=== PATIENT | female | born 1950 | race Caucasian/White ===

== ENCOUNTER 2016-12-08 07:10 | Emergency (ER) | payer MEDICARE, OTHER ==
[2016-12-08] MEDS ORDERED: METHYLPREDNISOLONE PF 125MG/VIAL IM ONE (07:36)
--- NOTE | 2016-12-08 07:44 | Emergency Department Record ---
History of Present Illness - General Chief Complaint: Back Pain/Injury Stated Complaint: siatica, left leg pain and spasms in both Time Seen by Provider: 12/08/16 07:36 Source: Patient Mode of Arrival: Ambulatory Limitations: No limitations - History of Present Illness Initial Comments: 66 yo female presents to ED with a CC of worsening back and left hip pain that has been ongoing for some time. Patient reports seeing Dr. Baumann for her symptoms last week, underwent x-rays of the hips which were negative at that time. Patient is scheduled to see an orthopedics surgeon soon as well for her symptoms. Patient is requesting a "steroid shot for her sciatica pain". MD Complaint: Back pain Onset/Timin -: Week(s) Similar Symptoms Previously: Yes Place: Home Radiation: Left leg Severity: Moderate Severity scale (1-10): 10 Quality: Aching Consistency: Constant Improves With: None Worsens With: None Context: Unknown Associated Symptoms: Denies other symptoms Treatments Prior to Arrival: Prescription analgesics - Related Data Home Medications Medication Instructions Recorded Confirmed Last Taken Clonazepam [Klonopin] 1 mg PO QHS 06/28/14 12/08/16 12/08/16 Sumatriptan Succinate [Imitrex] 100 mg PO ASDIR PRN 06/28/14 12/08/16 12/08/16 Hydrocodone/Acetaminophen 1 tab PO Q6H 10/11/15 12/08/16 12/08/16 [Hydrocodon-Acetaminoph 7.5-325] Paroxetine HCl 40 mg PO DAILY #30 07/28/16 12/08/16 12/08/16 Ondansetron [Zofran Odt] 4 mg PO QID PRN 09/04/16 12/08/16 12/08/16 Ropinirole HCl [Requip] 0.5 mg PO QHS 09/04/16 12/08/16 12/08/16 Bupropion HCl [Wellbutrin Sr] 150 mg PO DAILY 12/08/16 12/08/16 12/08/16 Allergies Allergy/AdvReac Type Severity Reaction Status Date / Time nadolol [From Corgard] Allergy Severe SWELLING Verified 12/08/16 07:16 OF THE TONGUE prochlorperazine edisylate Allergy Severe SWELLING Verified 12/08/16 07:16 [From Compazine] OF THE TONGUE prochlorperazine maleate Allergy Severe SWELLING Verified 12/08/16 07:16 [From Compazine] OF THE TONGUE trimethobenzamide HCl Allergy Severe SWELLING Verified 12/08/16 07:16 [From Tigan] OF THE TONGUE hydromorphone HCl Allergy Intermediate VOMITING Verified 12/08/16 07:16 [From Dilaudid] metoclopramide HCl Allergy Intermediate RASH Verified 12/08/16 07:16 [From Reglan] topiramate [From Topamax] AdvReac Mild Kidney Verified 12/08/16 07:16 Stones Travel Screening - Travel/Exposure Within Last 30 Days Have you traveled within the last 30 days?: No - Travel/Exposure Within Last Year Have you traveled outside the [place] in the last year?: No - Additonal Travel Details Have you been exposed to anyone with a communicable illness?: No - Travel Symptoms Symptom Screening: None Review of Systems Constitutional: Denies: Chills, Fever, Malaise, Night sweats Eyes: Denies: Eye discharge, Eye pain ENT: Denies: Congestion, Ear pain, Epistaxis Respiratory: Denies: Cough, Dyspnea Cardiovascular: Denies: Chest pain, Dyspnea on exertion Endocrine: Denies: Fatigue, Heat or cold intolerance Gastrointestinal: Denies: Abdominal pain, Nausea, Vomiting Genitourinary: Denies: Dysuria, Frequency, Hematuria Musculoskeletal: Reports: Arthralgia, Back pain. Denies: Gout, Joint swelling Skin: Denies: Bruising, Change in color Neurological: Denies: Abnormal gait, Confusion, Headache, Seizure Psychiatric: Denies: Anxiety Hematological/Lymphatic: Reports: Anemia. Denies: Blood Clots Past Medical History - SOCIAL HISTORY Smoking Status: Never smoker Alcohol Use: None Drug Use: None - RESPIRATORY Hx Respiratory Disorders: No - CARDIOVASCULAR Hx Cardio Disorders: No Comment:: left foot fascitis hard to stand and/or walk for a period time - NEURO Hx Neuro Disorders: Yes Hx of Migraines: Yes (nausea and vomitting w/ these) Hx Neuropathy: Yes (Left foot) Comment:: bilateral vitreous detachment - GI Hx GI Disorders: Yes Hx Reflux: Yes Hx Hiatal Hernia: Yes (MODERATE SIZE) - Hx Genitourinary Disorders: Yes Hx Kidney Stones: Yes (with renal stents) - ENDOCRINE Hx Endocrine Disorders: No Hx Diabetes: No Hx Thyroid Disease: No - MUSCULOSKELETAL Hx Musculoskeletal Disorders: Yes Hx Arthritis: Yes Hx Osteoporosis: Yes Comment:: right rotator cuff tear-currently:degen disc dz lower thoracic, - PSYCH Hx Psych Problems: Yes Hx Depression: Yes - HEMATOLOGY/ONCOLOGY Hx Hematology/Oncology Disorders: Yes Hx Bruising: Yes Family Medical History Any Significant Family History?: Yes Hx Heart Disease: Mother, Grandparents *Heart Comment: A.fib, CHF Hx Stroke: Grandparents Physical Exam - General General Appearance: Alert, Oriented x3, Cooperative, No acute distress, Other ( Can sit up from supine easily and without pain symptoms) Limitations: No limitations - Head Head exam: Atraumatic, Normocephalic, Normal inspection Head exam detail: negative: Abrasion, Contusion, Bettencourt's sign, General tenderness, Hematoma, Laceration - Eye Eye exam: Normal appearance. negative: Conjunctival injection, Periorbital swelling, Periorbital tenderness, Scleral icterus - ENT Ear exam: negative: Auricular hematoma, Auricular trauma Nasal Exam: negative: Active bleeding, Discharge, Dried blood, Foreign body Mouth exam: negative: Drooling, Laceration, Muffled voice, Tongue elevation - Neck Neck exam: Normal inspection. negative: Meningismus, Tenderness - Respiratory Respiratory exam: Normal lung sounds bilaterally. negative: Rales, Respiratory distress, Rhonchi, Stridor - Cardiovascular Cardiovascular Exam: Regular rate, Normal rhythm, Normal heart sounds - GI/Abdominal GI/Abdominal exam: Soft. negative: Rebound, Rigid, Tenderness - Rectal Rectal exam: Deferred - exam: Deferred - Extremities Extremities exam: Tenderness, Other (Mild TTP to the lateral left hip on examination, no shortening or pain with rotation). negative: Calf tenderness, Pedal edema - Back Back exam: Denies: CVA tenderness (R), CVA tenderness (L) - Neurological Neurological exam: Alert, Normal gait, Oriented X3 - Psychiatric Psychiatric exam: Flat affect, Normal mood - Skin Skin exam: Normal color. negative: Abrasion Type of lesion: negative: abrasion Course Vital Signs 12/08/16 07:20 Temperature 98.3 F Pulse Rate 94 H Respiratory 18 Rate Blood Pressure 122/84 Pulse Ox 97 - Reevaluation(s) Reevaluation #1: 12/08/16 07:41 Previous records reviewed from patient's records: 12/01/16: Bilateral hips/pelvis: Mild degenerative changes, nothing acute. Chronic lesion 15x15 mm to the left iliac crest seen on prior imaging. 08/08/17: MRI Lumbar spine: Mild multi-degenerative changes, borderline canal stenosis. Neural foraminal narrowing at L2-L3, L3-L4. Patient is requesting a "steroid shot" for her pain and inflammation, solumedrol 125 mg ordered for analgesia. Patient has no evidence for acute spinal cord compression syndrome, and otherwise appears stable for discharge at this time. Disposition Disposition: Discharge Clinical Impression: Arthritis of lumbar spine Disposition: Home, Self-Care Condition: (2) Stable Instructions: Osteoarthritis (ED) Additional Instructions: Return to ED if your symptoms worsen or if you have any concerns. Follow-up with Dr. Baumann in 5-7 days as directed. Forms: Patient Portal Access Time of Disposition: 07:45
== END 2016-12-08 08:13 | disposition home or self-care (01) ==
LOC: ER 07:10
DX: M47.896 Other spondylosis, lumbar region (principal)
CPT/HCPCS: 96372; 99283; J2930

== ENCOUNTER 2017-09-28 23:24 | Emergency (ER) | payer MEDICARE, OTHER ==
[2017-09-28] MEDS ORDERED: METHYLPREDNISOLONE PF 125MG/VIAL IVP ONE (23:46)
--- NOTE | 2017-09-28 23:49 | Emergency Department Record ---
History of Present Illness - General Chief complaint: ENT Stated complaint: EAR PAIN Time Seen by Provider: 09/28/17 23:45 Source: Patient Mode of Arrival: Ambulatory Limitations: No limitations - History of Present Illness Initial comments: 67 yo female presents to ED for evaluation of a possible foreign body in the left ear as well as back pain resulting from shoveling snow today. Patient reports that part of her hearing aid "snapped off" inside the ear canal. Patient reports pain to the area, denies bleeding or discharge symptoms. Patient also denies groin numbness, urinary retention, or lower extremity weakness symptoms. MD complaint: Ear pain Onset/Timin -: Hour(s) Location: L ear Severity scale (1-10): 7 Consistency: Constant Improves with: None Worsens with: None Context- Ear: Other - Related Data Home Medications Medication Instructions Recorded Confirmed Last Taken Ferrous Sulfate, Dried [Iron] 65 mg PO DAILY 09/28/17 09/28/17 Unknown Ropinirole HCl [Requip] 5 mg PO QHS 09/28/17 09/28/17 Unknown Allergies Allergy/AdvReac Type Severity Reaction Status Date / Time nadolol [From Corgard] Allergy Severe SWELLING Verified 09/28/17 23:31 OF THE TONGUE prochlorperazine edisylate Allergy Severe SWELLING Verified 09/28/17 23:31 [From Compazine] OF THE TONGUE prochlorperazine maleate Allergy Severe SWELLING Verified 09/28/17 23:31 [From Compazine] OF THE TONGUE trimethobenzamide HCl Allergy Severe SWELLING Verified 09/28/17 23:31 [From Tigan] OF THE TONGUE hydromorphone HCl Allergy Intermediate VOMITING Verified 09/28/17 23:31 [From Dilaudid] metoclopramide HCl Allergy Intermediate RASH Verified 09/28/17 23:31 [From Reglan] topiramate [From Topamax] AdvReac Mild Kidney Verified 09/28/17 23:31 Stones Travel Screening - Travel/Exposure Within Last 30 Days Have you traveled within the last 30 days?: No - Travel Symptoms Symptom Screening: None Review of Systems Constitutional: Denies: Chills, Fever, Malaise, Night sweats Eyes: Denies: Eye discharge, Eye pain ENT: Reports: Ear pain. Denies: Congestion, Epistaxis Respiratory: Denies: Cough, Dyspnea Cardiovascular: Denies: Chest pain, Dyspnea on exertion Endocrine: Denies: Fatigue, Heat or cold intolerance Gastrointestinal: Denies: Abdominal pain, Nausea, Vomiting Genitourinary: Denies: Incontinence, Retention Musculoskeletal: Reports: Back pain. Denies: Arthralgia Skin: Denies: Bruising, Change in color Neurological: Denies: Abnormal gait, Confusion, Headache, Seizure, Tingling Psychiatric: Denies: Anxiety Hematological/Lymphatic: Denies: Anemia, Blood Clots Past Medical History - SOCIAL HISTORY Smoking Status: Never smoker - RESPIRATORY Hx Respiratory Disorders: No - CARDIOVASCULAR Hx Cardio Disorders: No Comment:: left foot fascitis hard to stand and/or walk for a period time - NEURO Hx Neuro Disorders: Yes Hx Headaches: Yes Hx of Migraines: Yes (nausea and vomitting w/ these) Hx Neuropathy: Yes (Left foot) Comment:: bilateral vitreous detachment - GI Hx GI Disorders: Yes Hx Reflux: Yes Hx Hiatal Hernia: Yes (MODERATE SIZE) - Hx Genitourinary Disorders: Yes Hx Kidney Stones: Yes (with renal stents) - ENDOCRINE Hx Endocrine Disorders: No Hx Diabetes: No Hx Thyroid Disease: No - MUSCULOSKELETAL Hx Musculoskeletal Disorders: Yes Hx Arthritis: Yes Hx Osteoporosis: Yes Comment:: right rotator cuff tear-currently:degen disc dz lower thoracic, - PSYCH Hx Psych Problems: Yes Hx Depression: Yes - HEMATOLOGY/ONCOLOGY Hx Hematology/Oncology Disorders: Yes Hx Anemia: Yes Hx Bruising: Yes Family Medical History Any Significant Family History?: Yes Hx Heart Disease: Mother, Grandparents *Heart Comment: A.fib, CHF Hx Stroke: Grandparents Physical Exam - General General Appearance: Alert, Oriented x3, Cooperative, Mild distress Limitations: No limitations - Head Head exam: Atraumatic, Normocephalic, Normal inspection Head exam detail: negative: Abrasion, Contusion, Bettencourt's sign, General tenderness, Hematoma, Laceration - Eye Eye exam: Normal appearance. negative: Conjunctival injection, Periorbital swelling, Periorbital tenderness, Scleral icterus - ENT Ear exam: Other (Small plastic piece is in the left ear canal). negative: Auricular hematoma, Auricular trauma Nasal Exam: negative: Active bleeding, Discharge, Dried blood, Foreign body Mouth exam: negative: Drooling, Laceration, Muffled voice, Tongue elevation - Neck Neck exam: Normal inspection. negative: Meningismus, Tenderness - Respiratory Respiratory exam: Normal lung sounds bilaterally. negative: Rales, Respiratory distress, Rhonchi, Stridor - Cardiovascular Cardiovascular Exam: Regular rate, Normal rhythm, Normal heart sounds - GI/Abdominal GI/Abdominal exam: Soft. negative: Rebound, Rigid, Tenderness - Rectal Rectal exam: Deferred - exam: Deferred - Extremities Extremities exam: Normal inspection. negative: Pedal edema, Tenderness - Back Back exam: Denies: CVA tenderness (R), CVA tenderness (L) - Neurological Neurological exam: Alert, Normal gait, Oriented X3 - Psychiatric Psychiatric exam: Normal affect, Normal mood - Skin Skin exam: Normal color. negative: Abrasion Type of lesion: negative: abrasion Course Vital Signs 09/28/17 23:29 Temperature 98.4 F Pulse Rate [ 90 Pulse Ox Probe] Respiratory 20 Rate Blood Pressure 154/91 [Left Arm] Pulse Ox 97 Procedures - Foreign Body Removal Ear Location: Ear canal (L) Foreign Body Suspected: Plastic bead/other plastic Foreign Body Removed: Yes Foreign Body Removal Technique: Forceps Tympanic Membrane Intact: Yes Patient Tolerated Procedure: Good Complications: None Disposition Disposition: Discharge Clinical Impression: Lumbar strain Qualifiers: Encounter type: initial encounter Qualified Code(s): S39.012A - Strain of muscle, fascia and tendon of lower back, initial encounter Ear foreign body Qualifiers: Encounter type: initial encounter Laterality: left Qualified Code(s): T16.2XXA - Foreign body in left ear, initial encounter Disposition: Home, Self-Care Condition: (2) Stable Instructions: Ear Foreign Body (ED) Additional Instructions: Return to ED if your symptoms worsen or if you have any concerns. Follow-up with your family doctor in 3-5 days as directed. Forms: Patient Portal Access Time of Disposition: 23:49 Quality - Quality Measures Quality Measures: N/A - Blood Pressure Screening Does Patient Have Any of the Following: No Blood Pressure Classification: Hypertensive Reading Systolic Measurement: 154 Diastolic Measurement: 91 Screening for High Blood Pressure: < First Hypertensive BP, F/U Documented > [ [id number]] First Hypertensive Follow-up Interventions: Referral to alternative/primary care provider.
[2017-09-28] MEDS ORDERED: METHYLPREDNISOLONE PF 125MG/VIAL IM ONE (23:50)
== END 2017-09-28 23:57 | disposition home or self-care (01) ==
LOC: ER 23:24
DX: S39.012A Strain of muscle, fascia and tendon of lower back, initial encounter (principal); T16.2XXA Foreign body in left ear, initial encounter; X50.9XXA Other and unspecified overexertion or strenuous movements or postures, initial encounter; Y93.H1 Activity, digging, shoveling and raking
CPT/HCPCS: 96372; 99283; 99284; J2930

== ENCOUNTER 2018-08-17 06:28 | Day surgery (SDC) | payer MEDICARE, OTHER ==
--- NOTE | 2018-08-16 11:30 | History and Physical - [place] ---
CHIEF COMPLAINT/HISTORY OF CHIEF COMPLAINT: This patient presents with a history of an intractable lumbar radiculopathy. Due to the failure of all therapy, a spinal cord stimulator trial was conducted on 07/23/18 with 75-85% pain control. Due to the failure of therapy and the success of the stimulator trial, the patient presents today for implantation of a permanent system. PAST MEDICAL HISTORY: Bladder dysfunction, gastritis, and chronic pulmonary disease. PAST SURGICAL HISTORY: Hysterectomy, tibial and fibular fracture plate and screws done through surgery. MEDICATIONS ON ADMISSION: List to be provided. ALLERGIES: CORGARD, IV TYLENOL, AND REGLAN. FAMILY/PSYCHOSOCIAL HISTORY: Social history - Noncontributory. Family history - Thyroid disease and hypertension. SYSTEMS REVIEW: The patient is appropriate in no acute distress. The remainder of the systems review is positive for glasses, hearing aids, renal lithiasis, degenerative arthritis, depression, and difficulty sleeping. PHYSICAL EXAMINATION: Height and weight are not known. No vital signs. HEENT: Within normal limits. LUNGS: Clear. HEART: Regular rate and rhythm. ABDOMEN: Nontender. MUSCULOSKELETAL: Examination of the musculoskeletal system shows diffuse tenderness throughout the lumbar spine. There is pain extending into both lower extremities. There is no motor or sensory abnormalities, only pain which seems to extend across an L4 and an L5 pattern. Ambulation - No assistive device utilized. NEUROLOGIC: Cranial nerves are intact. IMPRESSION: LUMBAR RADICULOPATHY, ICD-10 CODE M54.16 AND M54.17. PLAN: The patient is here for an implanted spinal cord stimulator after a successful trial and failure of all other therapies. The procedure will be considered outpatient, although an overnight stay will be evaluated. Potential risks, side effects and complications have all been carefully reviewed. JOB NUMBER: [id number] [facility]
[~2018-08-17 06:28] MED LIST: ACETAMINOPHEN 1,000 MG/100 ML BTL IV ONE; CEFAZOLIN 2 Gram 2 GM/50 ML BAG IVPB ONE; FAMOTIDINE 20MG TABLET PO ONE; MECLIZINE 25 MG TABLET PO ONE
[2018-08-17] MEDS ORDERED: PROPOFOL 10 MG/ML VIAL IV ONE (06:29)
[2018-08-17] MEDS ORDERED: CEFAZOLIN 1G VIAL IM ONE (06:29)
[2018-08-17] MEDS ORDERED: LIDOCAINE 1% W/EPI 1:200,000 MPF 30ML SQ ONE (06:29)
[2018-08-17] MEDS ORDERED: BUPIVACAINE 0.5% W/EPI MPF 30 ML VIAL IVP ONE (06:29)
[2018-08-17] MEDS ORDERED: LIDOCAINE 2% MDV (20MG/ML) 20ML VIAL IV ONE (06:29)
[2018-08-17] MEDS ORDERED: MIDAZOLAM HCL 2MG/2ML VIAL IV ONE (06:29)
[2018-08-17] MEDS ORDERED: FENTANYL PF 100MCG/2ML VIAL IV ONE ×2 (06:29)
--- NOTE | 2018-08-17 11:34 | Operative Note ---
DATE: 08/17/2018. PREOPERATIVE DIAGNOSIS: INTRACTABLE LUMBAR RADICULOPATHY, ICD-10 CODE M54.16 AND M54.17. PROCEDURES: 1. Fluoroscopically guided left epidural access at T12-L1. Placement of spinal cord stimulator lead 1, a [employer] 16 with 16 electrodes, positioned left T7. 2. Fluoroscopically guided left epidural access at T11-12. Placement of spinal cord stimulator lead 2, a [employer]ineon 16 with 16 electrodes, positioned right T7. 3. Complex programming of lead 1 over 20 minutes followed by complex programming of lead 2 over 20 minutes. 4. Incision, subcutaneous dissection, and anchoring of each lead to the supraspinous fascia with a [employer] locking anchor. 5. Incision, subcutaneous dissection, and creation of subcutaneous pouch at the right posterior gluteal margin for placement of generator identified as a [employer] programmable rechargeable WaveWriter generator. 6. Tunnelling between pouches with placement of the external portions of lead 1 and lead 2 into generator pouch. Interfacing each lead to the generator. 7. Placement of generator into pouch. Placement of leads into the pouch. 8. Closure of both incisions using Stratafix suture; #2-0 for the fascia and #3 -0 for the skin. Dermabond closure. 9. Complex recovery room programming of the internal generator for home use, two stimulators, for 20 minutes. SURGEON: Dewayne Serrano D.O. INDICATIONS: This patient presents with a history of intractable lumbar radiculopathy. Due to the failure of therapy, a spinal cord stimulator trial was conducted with 75 to 85 percent pain control. Due to the failure of all therapies and the success of the trial, the patient presents today for implantation of a permanent system. DESCRIPTION OF PROCEDURE: Intravenous lines, vital sign monitoring, and intravenous sedation. Prepped and draped with sterile technique. Under imaging the epidural interspaces left of the midline at 12-1 and 11-12 were marked and infiltrated. Using two curved Epimed needles with loss of resistance the spaces were accessed. At 12-1, spinal cord stimulator lead 1, a [employer]on 16 with 16 electrodes, was positioned left of the midline at T7. With the epidural access at 11-12, spinal cord stimulator lead 2 , a [employer] 16 with 16 electrodes was positioned right of T7. Complex programming of lead 1 over 20 minutes was followed by complex programming of lead 2 over 20 minutes. This resulted in complete patterns of stimulation across the back and into the legs. The patient indicated we were in all of the areas of the pain. The skin above and below both needles was infiltrated. A nonabsorbable pursestring suture was used to secure the leads to the skin. Each lead was then anchored to the supraspinous fascia with nonabsorbable suture, securing the leads to the [employer] locking anchor. At the right posterior gluteal margin, the site picked by the patient for the generator, the skin was infiltrated. An incision was made and subcutaneous dissection was conducted to perform a pouch of suitable size and depth for the generator, a [employer] programmable rechargeable generator. A tunneling tool was used to carry the leads into the pouch, and then each lead was interfaced to the generator. Antibiotic irrigation and Bovie for hemostasis. The generator was placed into the pouch and secured to the posterior fascia with nonabsorbable suture. The leads were placed into their own pouch. Both incisions were then closed using Stratafix suture; #2-0 for the fascia and #3-0 for the skin. Dermabond closure was then used to approximate the edges of both wounds. She was then transported to the recovery room stable with no side effects from the procedure or the sedation. When fully awake and alert, complex programming was performed re-establishing stimulation of pain control to all of the appropriate areas. Because of the lack of support system at home, she will be kept overnight for observation. She will then be discharged in the morning. DISCHARGE INSTRUCTIONS: 1. The sites are to remain clean and dry; although the Dermabond will allow showering. 2. Standard medications to be resumed including the antibiotic Levaquin 500 mg once a day for 14 days. 3. The office will contact the patient in 12 to 24 hours to set up an appointment in the next 7 to 10 days to evaluate the sites. Until then activities should stay low. 4. All other instructions were provided including numbers to contact with problems. She was then discharged. JOB NUMBER: [id number] cc: Nain Abraham Jr., [place].Vladislav COLLIER
[2018-08-17] MEDS ORDERED: DIPHENHYDRAMINE HCL 25 MG CAPSULE PO PRN ×2 (11:35)
[2018-08-17] MEDS ORDERED: SENNOSIDES/DOCUSATE SODIUM UD CAPSULE PO PRN ×2 (11:35)
[2018-08-17] MEDS ORDERED: AL HYDROX/MAG HYDROX 30ML UD PO PRN (11:35)
[2018-08-17] MEDS ORDERED: OXYCODONE/APAP 10MG-325MG TABLET PO PRN ×2 (11:35)
[2018-08-17] MEDS ORDERED: TEMAZEPAM 15 MG CAPSULE PO PRN ×2 (11:35)
[2018-08-17] MEDS ORDERED: HYDROCODONE/APAP 7.5/325MG TABLET PO PRN (11:35)
[2018-08-17] MEDS ORDERED: DIPHENHYDRAMINE HCL 50 MG/ML VIAL IVP PRN ×2 (11:35)
[2018-08-17] MEDS: HYDROCODONE/APAP 7.5/325MG TABLET PO PRN ×3 (13:30→21:43)
[2018-08-17] MEDS ORDERED: SUMATRIPTAN 100 MG PO PRN (14:28)
[2018-08-17] MEDS ORDERED: PAROXETINE 40 MG PO ONE (14:30)
[2018-08-17] MEDS ORDERED: BUPROPION 150 MG PO ONE (14:30)
[2018-08-17] MEDS: RINGERS SOLUTION,LACTATED 1,000 ML IV SCH ×2 (14:40→20:54)
[2018-08-17] MEDS: CEFAZOLIN 2 Gram 2 GM/50 ML BAG IVPB SCH (16:48)
[2018-08-18] MEDS: CEFAZOLIN 2 Gram 2 GM/50 ML BAG IVPB SCH ×2 (00:29→08:27)
[2018-08-18] MEDS: RINGERS SOLUTION,LACTATED 1,000 ML IV SCH (02:37)
[2018-08-18] MEDS: HYDROCODONE/APAP 7.5/325MG TABLET PO PRN ×2 (03:37→09:26)
--- NOTE | 2018-08-18 16:47 | RADIOLOGY REPORT ---
DATE: 08/17/2018. EXAM: AP THORACIC SPINE. HISTORY: LUMBAR RADICULOPATHY. TECHNIQUE: AP view of the thoracic spine. FINDINGS: AP view demonstrates the presence of a thoracic epidural stimulator. The epidural stimulator is present at the level of T6-7 at its cephalad margin. No acute, complicating process is noted. Mild cardiomegaly is identified. IMPRESSION: THORACIC STIMULATOR IN PLACE. JOB NUMBER: [id number] [facility]
== END 2018-08-18 10:05 | disposition home or self-care (01) ==
LOC: SUR 06:28 → MEDSURG 10:12 → SUR 08-18 10:05
PROVIDERS: ATTEND Pain Medicine Interventional Pain Medicine
DX: M54.16 Radiculopathy, lumbar region (principal); M54.17 Radiculopathy, lumbosacral region; K21.9 Gastro-esophageal reflux disease without esophagitis; K44.9 Diaphragmatic hernia without obstruction or gangrene
CPT/HCPCS: 63650; 63685; 01936; 95972; 72020; J3010; J0690 ×2; C1820; C1883

== ENCOUNTER 2018-10-11 09:39 | Emergency (ER) | payer MEDICARE, OTHER ==
[2018-10-11] MEDS ORDERED: METHYLPREDNISOLONE PF 125MG/VIAL IVP ONE (10:12)
--- NOTE | 2018-10-11 10:16 | Emergency Department Record ---
History of Present Illness - General Chief Complaint: Headache Migraine Stated Complaint: MIGRAINE Time Seen by Provider: 10/11/18 10:04 Source: Patient Mode of Arrival: Ambulatory Limitations: No limitations - History of Present Illness Initial Comments: The patient is here due to having a migraine DE OLIVEIRA for the last 2 weeks. The pain onset was gradual and on the L side of the head and neck. She has had mild nausea and photophobia. The patient has been using her home migraine medicines but they are not helping. She has a long hx of similar migraines and does see her specialist tomorrow. MD Complaint: "Migraine" Onset/Timin -: Week(s) Onset Description: Gradual Location: Left Severity scale (1-10): 10 Quality: Throbbing, Similar to previous headaches Worsens With: Light - Related Data Home Medications Medication Instructions Recorded Confirmed Last Taken Baclofen 10 mg PO TID 10/11/18 10/11/18 Unknown Cyanocobalamin (Vitamin B-12) 5,000 mcg PO BID 10/11/18 10/11/18 Unknown [B-12 Dual Spectrum] Ergocalciferol (Vitamin D2) 50,000 unit PO WEEKLY 10/11/18 10/11/18 Unknown [Vitamin D2] Ferrous Sulfate [Iron] 325 mg PO DAILY 10/11/18 10/11/18 Unknown Allergies Allergy/AdvReac Type Severity Reaction Status Date / Time nadolol [From Corgard] Allergy Severe SWELLING Verified 10/11/18 09:48 OF THE TONGUE prochlorperazine edisylate Allergy Severe SWELLING Verified 10/11/18 09:48 [From Compazine] OF THE TONGUE prochlorperazine maleate Allergy Severe SWELLING Verified 10/11/18 09:48 [From Compazine] OF THE TONGUE trimethobenzamide HCl Allergy Severe SWELLING Verified 10/11/18 09:48 [From Tigan] OF THE TONGUE metoclopramide HCl Allergy Intermediate RASH Verified 10/11/18 09:48 [From Reglan] acetaminophen [From Ofirmev] AdvReac Severe severe Verified 10/11/18 09:48 headache levofloxacin [From Levaquin] AdvReac Severe joint pain Verified 10/11/18 09:48 hydromorphone HCl AdvReac Intermediate VOMITING Verified 10/11/18 09:49 [From Dilaudid] topiramate [From Topamax] AdvReac Mild Kidney Verified 10/11/18 09:48 Stones Travel Screening - Travel/Exposure Within Last 30 Days Have you traveled within the last 30 days?: No Review of Systems Constitutional: Denies: Chills, Fever Eyes: Denies: Eye discharge ENT: Denies: Congestion Respiratory: Denies: Cough, Dyspnea Cardiovascular: Denies: Arrhythmia, Chest pain Endocrine: Denies: Fatigue Gastrointestinal: Reports: Nausea Genitourinary: Denies: Dysuria Musculoskeletal: Denies: Arthralgia Skin: Denies: Bruising Past Medical History - SOCIAL HISTORY Smoking Status: Never smoker Alcohol Use: None Drug Use: None - RESPIRATORY Hx Respiratory Disorders: No 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 - CARDIOVASCULAR Hx Cardio Disorders: Yes Hx Abnormal EKG: Yes - NEURO Hx Neuro Disorders: Yes Hx Headaches: Yes Hx of Migraines: Yes (nausea and vomitting w/ these) Hx Neuropathy: Yes (Left foot) Comment:: bilateral vitreous detachment - GI Hx GI Disorders: Yes Hx Reflux: Yes Hx Hiatal Hernia: Yes (MODERATE SIZE) - Hx Genitourinary Disorders: Yes Hx Kidney Stones: Yes (with renal stents) - ENDOCRINE Hx Endocrine Disorders: No Hx Diabetes: No Hx Thyroid Disease: No - MUSCULOSKELETAL Hx Musculoskeletal Disorders: Yes Hx Arthritis: Yes Hx Osteoporosis: Yes - PSYCH Hx Psych Problems: Yes Comment:: ptsd "saw my commit suicide" in therapy - HEMATOLOGY/ONCOLOGY Hx Hematology/Oncology Disorders: Yes Hx Anemia: Yes Hx Bruising: Yes Family Medical History Any Significant Family History?: Yes Hx Heart Disease: Mother, Grandparents *Heart Comment: A.fib, CHF Hx Stroke: Grandparents Physical Exam - General General Appearance: Alert, Oriented x3, Cooperative, No acute distress - Head Head exam: Atraumatic, Normocephalic, Normal inspection - Eye Eye exam: Normal appearance, PERRL, EOMI - ENT Throat exam: Normal inspection. negative: Tonsillar erythema, Tonsillar exudate - Neck Neck exam: Normal inspection, Full ROM. negative: Meningismus (The neck is very supple.), Tenderness - Respiratory Respiratory exam: Normal lung sounds bilaterally. negative: Respiratory distress - Cardiovascular Cardiovascular Exam: Regular rate, Normal rhythm, Normal heart sounds - GI/Abdominal GI/Abdominal exam: Soft, Normal bowel sounds. negative: Tenderness - Extremities Extremities exam: Normal inspection, Full ROM, Normal capillary refill. negative: Tenderness - Neurological Neurological exam: Alert, Altered, Normal gait, Oriented X3, Other (Neg Drift and Rhomberg.). negative: Abnormal gait, Motor sensory deficit Course Vital Signs 10/11/18 09:45 Temperature 98.0 F Pulse Rate 62 Respiratory 20 Rate Blood Pressure 146/98 Pulse Ox 97 - Reevaluation(s) Reevaluation #1: The patient is not doing a whole lot better yet. We will give her more medicine. 10/11/18 11:30 Reevaluation #2: The patient is doing a lot better at this time. Her DE OLIVEIRA is resolving and she is ready for home. I did discuss the case with Dr. Muro and he agrees with the plan and will see the patient tomorrow in the office. 10/11/18 12:43 Disposition Disposition: Discharge Clinical Impression: Migraine Qualifiers: Migraine type: unspecified Status migrainosus presence: without status migrainosus Intractability: not intractable Qualified Code(s): G43.909 - Migraine, unspecified, not intractable, without status migrainosus Disposition: Home, Self-Care Condition: (2) Stable Instructions: Migraine Headache (ED) Additional Instructions: Please continue your regular medicines and see your Specialist tomorrow as planned. Return to the ER for any worsening symptoms. Forms: Patient Portal Access Time of Disposition: 12:44 Quality - Quality Measures Quality Measures: Headache (All Ages) - Headache: Neuroimaging Quality Measure: Measure #419: Overuse of Neuroimaging ICD10 Codes Entered: Yes View Detail: Yes Neurological Exam: Patient had a normal neurological exam. [G9535] Headache: Use of Neuroimaging: < CTA, CT, MRA or MRI was NOT ordered > [G9534] - Blood Pressure Screening View Details: Yes Does Patient Have Any of the Following: No Blood Pressure Classification: Hypertensive Reading Systolic Measurement: 146 Diastolic Measurement: 98 Screening for High Blood Pressure: < First Hypertensive BP, F/U Documented > [ G8950] First Hypertensive Follow-up Interventions: Referral to alternative/primary care provider.
[2018-10-11] MEDS ORDERED: 0.9 % SODIUM CHLORIDE 1,000 ML BAG IV ONE (10:25)
[2018-10-11] MEDS ORDERED: KETOROLAC 30 MG/ML VIAL IVP ONE (11:06)
[2018-10-11] MEDS ORDERED: PROMETHAZINE HCL 12.5 MG in 0.9 % SODIUM CHLORIDE 100ML 100 ML IVPB ONE (11:50)
== END 2018-10-11 12:56 | disposition home or self-care (01) ==
LOC: ER 09:39
DX: G43.909 Migraine, unspecified, not intractable, without status migrainosus (principal); M54.2 Cervicalgia; R11.0 Nausea; H53.149 Visual discomfort, unspecified
CPT/HCPCS: 99284 ×2; 96365; 96375; 96361; J1885; J2550; J2930; J7030

== ENCOUNTER 2018-10-15 18:49 | Emergency (ER) | payer MEDICARE, OTHER ==
--- NOTE | 2018-10-15 20:41 | Emergency Department Record ---
History of Present Illness - General Chief Complaint: Headache Migraine Stated Complaint: MIGRAINE Time Seen by Provider: 10/15/18 20:33 Source: Patient Mode of Arrival: Ambulatory - History of Present Illness Initial Comments: The patient has had a typical migraine headache for the past 2 weeks which has not been relieved with Imetrex. She admits to taking too much imetrex for it. She was here last for the migraine but it didn't get better. She has been laying around in bed but has decreased fluid intake today. The migraine is located on her right face and right lateral neck, is typical of her prior headaches. She saw Dr. Muro the next day, Monday, and got 30 botox injections which have not helped. She was told it would take 10-14 days to take effect. She denies fevers, chills, URI symptoms, stiff neck, rashes. She has nausea, photophobia, photophonia. Her las zofran was 2 p.m. 8 hours ago. Onset/Timin -: Week(s) Onset Description: Gradual Location: Neck, Right, Temporal Severity scale (1-10): 10 Consistency: Constant Improves With: Nothing Worsens With: None - Related Data Allergies Allergy/AdvReac Type Severity Reaction Status Date / Time nadolol [From Corgard] Allergy Severe SWELLING Verified 10/11/18 09:48 OF THE TONGUE prochlorperazine edisylate Allergy Severe SWELLING Verified 10/11/18 09:48 [From Compazine] OF THE TONGUE prochlorperazine maleate Allergy Severe SWELLING Verified 10/11/18 09:48 [From Compazine] OF THE TONGUE trimethobenzamide HCl Allergy Severe SWELLING Verified 10/11/18 09:48 [From Tigan] OF THE TONGUE metoclopramide HCl Allergy Intermediate RASH Verified 10/11/18 09:48 [From Reglan] acetaminophen [From Ofirmev] AdvReac Severe severe Verified 10/11/18 09:48 headache levofloxacin [From Levaquin] AdvReac Severe joint pain Verified 10/11/18 09:48 hydromorphone HCl AdvReac Intermediate VOMITING Verified 10/11/18 09:49 [From Dilaudid] topiramate [From Topamax] AdvReac Mild Kidney Verified 10/11/18 09:48 Stones Travel Screening - Travel/Exposure Within Last 30 Days Have you traveled within the last 30 days?: No Review of Systems Reviewed: No additional complaints except as noted below Constitutional: Reports: As per HPI. Denies: Chills, Fever, Malaise, Night sweats, Weakness, Weight change Eyes: Reports: As per HPI. Denies: Eye discharge, Eye pain, Photophobia, Vision change ENT: Reports: As per HPI. Denies: Congestion, Dental pain, Ear pain, Epistaxis , Hearing loss, Throat pain Respiratory: Reports: As per HPI. Denies: Cough, Dyspnea, Hemoptysis, Stridor, Wheezes Cardiovascular: Reports: As per HPI. Denies: Arrhythmia, Chest pain, Dyspnea on exertion, Edema, Murmurs, Orthopnea, Palpitations, Paroxysmal nocturnal dyspnea, Rheumatic Fever, Syncope Endocrine: Reports: As per HPI. Denies: Fatigue, Heat or cold intolerance, Polydipsia, Polyuria Gastrointestinal: Reports: As per HPI. Denies: Abdominal pain, Constipation, Diarrhea, Hematemesis, Hematochezia, Melena, Nausea, Vomiting Genitourinary: Reports: As per HPI. Denies: Abnormal menses, Discharge, Dyspareunia, Dysuria, Frequency, Hematuria, Incontinence, Retention, Urgency Musculoskeletal: Reports: As per HPI. Denies: Arthralgia, Back pain, Gout, Joint swelling, Myalgia, Neck pain Skin: Reports: As per HPI. Denies: Bruising, Change in color, Change in hair/ nails, Lesions, Pruritus, Rash Neurological: Reports: As per HPI. Denies: Abnormal gait, Confusion, Headache, Numbness, Paresthesias, Seizure, Tingling, Tremors, Vertigo, Weakness Psychiatric: Reports: As per HPI. Denies: Anxiety, Auditory hallucinations, Depression, Homicidal thoughts, Suicidal thoughts, Visual hallucinations Hematological/Lymphatic: Reports: As per HPI. 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 - CARDIOVASCULAR Hx Cardio Disorders: Yes Hx Abnormal EKG: Yes - NEURO Hx Neuro Disorders: Yes Hx Headaches: Yes Hx of Migraines: Yes (nausea and vomitting w/ these) Hx Neuropathy: Yes (Left foot) Comment:: bilateral vitreous detachment - GI Hx GI Disorders: Yes Hx Reflux: Yes Hx Hiatal Hernia: Yes (MODERATE SIZE) - Hx Genitourinary Disorders: Yes Hx Kidney Stones: Yes (with renal stents) - ENDOCRINE Hx Endocrine Disorders: No Hx Diabetes: No Hx Thyroid Disease: No - MUSCULOSKELETAL Hx Musculoskeletal Disorders: Yes Hx Arthritis: Yes Hx Osteoporosis: Yes - PSYCH Hx Psych Problems: Yes Comment:: ptsd "saw my commit suicide" in therapy - HEMATOLOGY/ONCOLOGY Hx Hematology/Oncology Disorders: Yes Hx Anemia: Yes Hx Bruising: Yes Family Medical History Any Significant Family History?: Yes Hx Heart Disease: Mother, Grandparents *Heart Comment: A.fib, CHF Hx Stroke: Grandparents Physical Exam - General General Appearance: Alert, Oriented x3, Cooperative, Mild distress (laying in dark room, alert, conversive) - Head Head exam: Normal inspection - Eye Eye exam: Normal appearance, PERRL, EOMI. negative: Nystagmus Pupils: Normal accommodation - ENT ENT exam: Normal exam, Mucous membranes dry, Normal external ear exam, Normal orophraynx, TM's normal bilaterally Ear exam: Normal external inspection. negative: External canal tenderness Nasal Exam: Normal inspection. negative: Discharge, Sinus tenderness Mouth exam: Normal external inspection, Tongue normal Teeth exam: Normal inspection. negative: Dental caries Throat exam: Normal inspection. negative: Tonsillar erythema, Tonsillar exudate - Neck Neck exam: Normal inspection, Full ROM (flexes chin to chest easily). negative : Lymphadenopathy, Meningismus, Tenderness - Respiratory Respiratory exam: Normal lung sounds bilaterally. negative: Respiratory distress - Cardiovascular Cardiovascular Exam: Regular rate, Normal rhythm, Normal heart sounds - GI/Abdominal GI/Abdominal exam: Soft, Normal bowel sounds. negative: Tenderness - Rectal Rectal exam: Deferred - exam: Deferred - Extremities Extremities exam: Normal inspection, Full ROM, Normal capillary refill. negative: Calf tenderness, Pedal edema, Tenderness - Back Back exam: Reports: Normal inspection, Full ROM. Denies: CVA tenderness (R), CVA tenderness (L), Muscle spasm, Rash noted, Tenderness - Neurological Neurological exam: Alert, CN II-XII intact, Normal gait, Oriented X3, Reflexes normal. negative: Motor sensory deficit - Psychiatric Psychiatric exam: Normal affect, Normal mood - Skin Skin exam: Dry, Intact, Normal color, Warm Course Vital Signs 10/15/18 19:10 Temperature 98.1 F Pulse Rate 90 Respiratory 20 Rate Blood Pressure 140/115 Pulse Ox 98 - Reevaluation(s) Reevaluation #1: Not much improvement but she feels hydrated now. She is willing to try a shot of haldol and go home to bed. 10/15/18 22:11 Medical Decision Making - Management Options MDM Management: No Additional Work-up Planned Disposition Disposition: Discharge Clinical Impression: Migraine aura, persistent, with status migrainosus Disposition: Home, Self-Care Condition: (1) Good Instructions: Migraine Headache (ED) Additional Instructions: Home to bed. Push fluids. Follow up with PCP and Dr. Muro for your headaches as needed. Quality - Quality Measures Quality Measures: N/A, Headache (All Ages) - Headache: Neuroimaging Quality Measure: Measure #419: Overuse of Neuroimaging ICD10 Codes Entered: Yes Neurological Exam: Patient had a normal neurological exam. [G9535] Headache: Use of Neuroimaging: < CTA, CT, MRA or MRI was NOT ordered > [G9534] - Blood Pressure Screening Does Patient Have Any of the Following: No Blood Pressure Classification: Hypertensive Reading Systolic Measurement: 140 Diastolic Measurement: 115 Screening for High Blood Pressure: Patient Exclusion, Hx of HTN [G9744]
[2018-10-15] MEDS ORDERED: 0.9 % SODIUM CHLORIDE 1,000 ML BAG IV ONE (21:00)
[2018-10-15] MEDS ORDERED: KETOROLAC 30 MG/ML VIAL IVP ONE (21:03)
[2018-10-15] MEDS ORDERED: DIPHENHYDRAMINE HCL 50 MG/ML VIAL IVP ONE (21:03)
[2018-10-15] MEDS ORDERED: HALOPERIDOL LACTATE 5 MG/ML VIAL IM ONE (22:12)
== END 2018-10-15 23:18 | disposition home or self-care (01) ==
LOC: ER 18:49
DX: G43.511 Persistent migraine aura without cerebral infarction, intractable, with status migrainosus (principal); R11.0 Nausea; M54.2 Cervicalgia; H53.149 Visual discomfort, unspecified; I10 Essential (primary) hypertension
CPT/HCPCS: 99284 ×2; 96374; 96372; 96375; J1885; J1200; J1630

== ENCOUNTER 2019-06-17 17:31 | Emergency (ER) | payer MEDICARE, OTHER ==
[2019-06-17] MEDS ORDERED: PREDNISONE 20 MG TAB PO ONE (17:41)
[2019-06-17] MEDS ORDERED: CEPHALEXIN 500 MG CAPSULE PO STA (17:41)
--- NOTE | 2019-06-17 17:43 | Emergency Department Record ---
History of Present Illness - General Chief complaint: Bite Insect/other Stated complaint: BEE STING Time Seen by Provider: 06/17/19 17:40 Source: Patient Mode of Arrival: Ambulatory Limitations: No limitations - History of Present Illness Initial comments: 68 yo female presents to ED for evaluation following a bee sting to the left posterior thigh that occurred 2 days ago. Patient reports increased redness and "hardness to the skin" following her sting. Patient has been taking Benadryl at home for her symptoms which improves her itching symptoms, redness however has not improved. Patient denies history of DM or immunosuppresion medication use, denies fevers, chills, or recent illness. Patient denies throat swelling or difficulty in breathing symptoms. MD complaint: Insect bite/sting Onset/Timin -: Days(s) Hx Tetanus Toxoid Vaccination: Yes Year of Tetanus Vaccination: 2017 Location: LLE Severity: Moderate Consistency: Constant Improves with: Other (Benadryl) Context: Witnessed insect bite Associated symptoms: Denies other symptoms Treatments Prior to Arrival: Benadryl - Related Data Home Medications Medication Instructions Recorded Confirmed Last Taken Memantine HCl [Namenda] 10 mg PO DAILY 06/17/19 06/17/19 Unknown Previous Rx's Medication Instructions Recorded Cephalexin [Keflex] 500 mg PO QID #39 cap 06/17/19 Prednisone [Prednisone 20Mg] 20 mg PO BID #12 tab 06/17/19 Allergies Allergy/AdvReac Type Severity Reaction Status Date / Time nadolol [From Corgard] Allergy Severe SWELLING Verified 10/11/18 09:48 OF THE TONGUE prochlorperazine edisylate Allergy Severe SWELLING Verified 10/11/18 09:48 [From Compazine] OF THE TONGUE prochlorperazine maleate Allergy Severe SWELLING Verified 10/11/18 09:48 [From Compazine] OF THE TONGUE trimethobenzamide HCl Allergy Severe SWELLING Verified 10/11/18 09:48 [From Tigan] OF THE TONGUE metoclopramide HCl Allergy Intermediate RASH Verified 10/11/18 09:48 [From Reglan] acetaminophen [From Ofirmev] AdvReac Severe severe Verified 10/11/18 09:48 headache levofloxacin [From Levaquin] AdvReac Severe joint pain Verified 10/11/18 09:48 hydromorphone HCl AdvReac Intermediate VOMITING Verified 10/11/18 09:49 [From Dilaudid] topiramate [From Topamax] AdvReac Mild Kidney Verified 10/11/18 09:48 Stones Review of Systems Constitutional: Denies: Chills, Fever, Malaise, Night sweats Eyes: Denies: Eye discharge, Eye pain ENT: Denies: Congestion, Ear pain, Epistaxis Respiratory: Denies: Cough, Dyspnea Cardiovascular: Denies: Chest pain, Dyspnea on exertion Endocrine: Denies: Fatigue, Heat or cold intolerance Gastrointestinal: Denies: Abdominal pain, Nausea, Vomiting Genitourinary: Denies: Incontinence, Retention Musculoskeletal: Denies: Arthralgia, Back pain Skin: Reports: Rash. 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 - CARDIOVASCULAR Hx Cardio Disorders: Yes Hx Abnormal EKG: Yes - NEURO Hx Neuro Disorders: Yes Hx Headaches: Yes Hx of Migraines: Yes (nausea and vomitting w/ these) Hx Neuropathy: Yes (Left foot) Comment:: bilateral vitreous detachment - GI Hx GI Disorders: Yes Hx Reflux: Yes Hx Hiatal Hernia: Yes (MODERATE SIZE) - Hx Genitourinary Disorders: Yes Hx Kidney Stones: Yes (with renal stents) - ENDOCRINE Hx Endocrine Disorders: No Hx Diabetes: No Hx Thyroid Disease: No - MUSCULOSKELETAL Hx Musculoskeletal Disorders: Yes Hx Arthritis: Yes Hx Osteoporosis: Yes - PSYCH Hx Psych Problems: Yes Comment:: ptsd "saw my commit suicide" in therapy - HEMATOLOGY/ONCOLOGY Hx Hematology/Oncology Disorders: Yes Hx Anemia: Yes Hx Bruising: Yes Family Medical History Hx Heart Disease: Mother, Grandparents *Heart Comment: A.fib, CHF Hx Stroke: Grandparents Physical Exam - General General Appearance: Alert, Oriented x3, Cooperative, Mild distress Limitations: No limitations - Head Head exam: Atraumatic, Normocephalic, Normal inspection Head exam detail: negative: Abrasion, Contusion, Bettencourt's sign, General tend erness, Hematoma, Laceration - Eye Eye exam: Normal appearance. negative: Conjunctival injection, Periorbital swelling, Periorbital tenderness, Scleral icterus - ENT Ear exam: negative: Auricular hematoma, Auricular trauma Nasal Exam: negative: Active bleeding, Discharge, Dried blood, Foreign body Mouth exam: negative: Drooling, Laceration, Muffled voice, Tongue elevation - Neck Neck exam: Normal inspection. negative: Meningismus, Tenderness - Respiratory Respiratory exam: Normal lung sounds bilaterally. negative: Respiratory distress, Rhonchi, Stridor, Wheezes - Cardiovascular Cardiovascular Exam: Regular rate, Normal rhythm, Normal heart sounds - GI/Abdominal GI/Abdominal exam: Soft. negative: Pulsatile mass, Rebound, Rigid - Rectal Rectal exam: Deferred - exam: Deferred - Extremities Extremities exam: Other (Erythema, induration to the left posterior-medial thigh c/w localized bee sting reaction vs. early cellulitis.). negative: Calf tenderness, Pedal edema, Tenderness - Back Back exam: Denies: CVA tenderness (R), CVA tenderness (L) - Neurological Neurological exam: Alert, Normal gait, Oriented X3 - Psychiatric Psychiatric exam: Normal affect, Normal mood - Skin Skin exam: Erythema Type of lesion: Bite/sting Distribution of rash: LLE Description of rash: Confluent, Erythematous, Indurated Course - Reevaluation(s) Reevaluation #1: 06/17/19 17:52 Symptoms appear c/w localized bee sting, cannot exclude early cellulitis. Will treat with both Prednisone and Keflex with instructions for follow-up in 3- 5 days as directed. No clinical evidence for anaphylatic reaction on examination. Patient appears stable for discharge at this time. Disposition Disposition: Discharge Clinical Impression: Bee sting reaction Qualifiers: Encounter type: initial encounter Injury intent: undetermined intent Qualified Code(s): T63.444A - Toxic effect of venom of bees, undetermined, initial encounter Disposition: Home, Self-Care Condition: (2) Stable Instructions: Insect Bite or Sting (ED) Additional Instructions: Return to ED if your symptoms worsen or if you have any concerns. Keflex and Prednisone as directed. Follow-up with your family doctor in 3-5 days as directed. Prescriptions: Cephalexin [Keflex] 500 mg PO QID #39 cap Prednisone [Prednisone 20Mg] 20 mg PO BID #12 tab Forms: Patient Portal Access Time of Disposition: 17:42 Quality - Quality Measures Quality Measures: N/A - Blood Pressure Screening Does Patient Have Any of the Following: No Blood Pressure Classification: Hypertensive Reading Systolic Measurement: 141 Diastolic Measurement: 90 Screening for High Blood Pressure: < First Hypertensive BP, F/U Documented > [G8950] First Hypertensive Follow-up Interventions: Referral to alternative/primary care provider.
== END 2019-06-17 17:50 | disposition home or self-care (01) ==
LOC: ER 17:31
DX: T63.444A Toxic effect of venom of bees, undetermined, initial encounter (principal)
CPT/HCPCS: 99283; J7512